=== PATIENT | female | born 1995 | race African-American/Black ===

== ENCOUNTER 2017-01-08 15:26 | Emergency (ER) | payer SELFPAY ==
[~2017-01-08] VITALS: Ht 160 cm; Wt 80.0 kg
[2017-01-08 15:27] VITALS: BP 124/78; PULSE 81; RESP 16; TEMP 98.4; O2SAT 98
[2017-01-08] MEDS ORDERED: ZOFR4TAB3 SL (15:57)
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
== END 2017-01-08 16:08 | disposition home or self-care (01) ==
LOC: NEPD 15:26
DX: K52.9 Noninfective gastroenteritis and colitis, unspecified (principal)
CPT/HCPCS: 99283

== ENCOUNTER 2017-03-13 12:55 | Emergency (ER) | payer MEDICAID ==
[~2017-03-13] VITALS: Ht 160 cm; Wt 75.0 kg
[~2017-03-13 12:55] MED LIST: ZOFR4TAB3 SL
[2017-03-13 12:58] VITALS: BP 116/74; PULSE 76; RESP 20; TEMP 97.9; O2SAT 100
[2017-03-13] MEDS ORDERED: SODIUM CHLOR 0.9% 1000 ML INJ 1,000 ML IV SCH (14:52)
[2017-03-13] MEDS ORDERED: ONDANSETRON HCL 4 MG/2 ML VIAL IVP ONE (15:00)
[2017-03-13] MEDS ORDERED: SODIUM CHLOR 0.9% 1000 ML INJ 1,000 ML IV ONE (15:00)
[2017-03-13] MEDS ORDERED: FAMOTIDINE 20 MG/2 ML VIAL IV PUSH ONE (15:00)
[2017-03-13] MEDS ORDERED: SODIUM CHLORIDE 0.9% FLUSH 10 ML FLUSH IV FLUSH PRN (15:00)
[2017-03-13] MEDS ORDERED: ZOFR4TAB PO (15:07)
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
[2017-03-13 15:43] LABS: AUTOMATED NEUTROPHIL # 2.2 TH/MM3 (1.8-7.7); BASOPHIL % 0.7 % (0.0-2.0); EOSINOPHIL # 0.1 TH/MM3 (0-0.4); EOSINOPHIL % 2.5 % (0.0-4.0); HEMATOCRIT 40.1 % (35.0-46.0); HEMO FLAGS DIFF FINAL; LYMPH % 43.4 % (9.0-44.0); LYMPHOCYTE # 2.1 TH/MM3 (1.0-4.8); MEAN CELL VOLUME 93.8 FL (80.0-100.0); MEAN CORPUSCULAR HEMOGLOBIN 31.8 PG (27.0-34.0); MEAN CORPUSCULAR HGB CONC 33.9 % (32.0-36.0); MONO % 8.1 % (0.0-8.0); NEUT % 45.3 % (16.0-70.0); PLATELET COUNT 277 TH/MM3 (150-450); RED BLOOD COUNT 4.28 MIL/MM3 (4.00-5.30); RED CELL DISTRIBUTION WIDTH 14.4 % (11.6-17.2); WHITE BLOOD COUNT 4.9 TH/MM3 (4.0-11.0)
[2017-03-13 16:12] LABS: ALT (GPT) 32 U/L (9-42); ANION GAP 9 MEQ/L (5-15); AST (GOT) 49 U/L (16-38); BICARBONATE 26.7 MEQ/L (21.0-32.0); BLOOD UREA NITROGEN 10 MG/DL (7-18); CHLORIDE 106 MEQ/L (98-107); GLOMERULAR FILTRATION RATE 137 ML/MIN (>89); POTASSIUM 3.9 MEQ/L (3.5-5.1); SODIUM (NA) 142 MEQ/L (136-145)
[2017-03-13 16:15] LABS: ALKALINE PHOSPHATASE 88 U/L (45-117); TOTAL BILIRUBIN ADULT 0.4 MG/DL (0.2-1.0)
== END 2017-03-13 16:44 | disposition home or self-care (01) ==
LOC: NEPD 12:55
DX: R11.2 Nausea with vomiting, unspecified (principal); J45.909 Unspecified asthma, uncomplicated
CPT/HCPCS: 80053; 84703; 85025; 96374; 96375; 99284; J2405; J7030

== ENCOUNTER 2017-03-16 15:47 | Emergency (ER) | payer MEDICAID ==
[~2017-03-16] VITALS: Ht 160 cm; Wt 75.0 kg
[~2017-03-16 15:47] MED LIST changes: +ZOFR4TAB PO
[2017-03-16 15:49] VITALS: BP 149/84; PULSE 74; RESP 16; TEMP 98.6; O2SAT 100
--- NOTE | 2017-03-16 18:21 | EKG ---
Date Performed: 03/16/2017 Time Performed: 16:07:13 PTAGE: 21 years EKG: Baseline artifact present probable Normal Sinus rhythm NO PREVIOUS TRACING Would repeat EKG DOCTOR: Joseph Walton Interpretating Date/Time 03/16/2017 18:20:46
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
[2017-03-16] MEDS ORDERED: VIST50CA PO (19:55)
[2017-03-16 20:12] VITALS: BP 134/70; PULSE 78; RESP 18; O2SAT 98
== END 2017-03-16 20:13 | disposition home or self-care (01) ==
LOC: NEPD 15:47
DX: F41.9 Anxiety disorder, unspecified (principal); R07.89 Other chest pain
CPT/HCPCS: 93005; 99283

== ENCOUNTER 2017-03-29 15:05 | Emergency (ER) | payer MEDICAID ==
[~2017-03-29] VITALS: Ht 160 cm; Wt 74.0 kg
[~2017-03-29 15:05] MED LIST changes: +VIST50CA PO
[2017-03-29 15:07] VITALS: BP 133/74; PULSE 79; RESP 16; TEMP 98.8; O2SAT 96
--- NOTE | 2017-03-29 15:42 | PD ---
HPI Chief Complaint: Cold / Flu Symptoms Time Seen by Provider: 15:42 PFSH Past Medical History Asthma: Yes Diminished Hearing: No Respiratory: Yes (ASTHMA) Social History Alcohol Use: Yes Tobacco Use: No Substance Use: No Allergies-Medications (Allergen,Severity, Reaction): Coded Allergies: No Known Allergies (Verified , 03/29/17) Reported Meds & Prescriptions Reported Meds & Active Scripts Active Ibuprofen 600 Mg Tab 600 Mg PO Q6H PRN Data Data Last Documented VS Vital Signs Date Time Temp Pulse Resp B/P (MAP) Pulse Ox O2 Delivery O2 Flow Rate FiO2 03/29/17 19:16 03/29/17 18:51 61 20 98 Room Air 03/29/17 15:07 98.8 Orders Orders Electrocardiogram (03/29/17 15:56) Basic Metabolic Panel (Bmp) (03/29/17 15:56) Complete Blood Count With Diff (03/29/17 15:56) D-Dimer (03/29/17 15:56) Troponin I (03/29/17 15:56) Chest, Single Ap (03/29/17 15:56) Ecg Monitoring (03/29/17 15:56) Bilateral Bp Monitoring (03/29/17 15:56) Iv Access Insert/Monitor (03/29/17 15:56) Oximetry (03/29/17 15:56) Oxygen Administration (03/29/17 15:56) Sodium Chloride 0.9% Flush (Ns Flush) (03/29/17 16:00) Ketorolac Inj (Toradol Inj) (03/29/17 16:00) Vascular Access Team Consult/P PRN (03/29/17 16:31) Vascular Poc Ultrasound (03/29/17 ) Ed Discharge Order (03/29/17 18:49) Labs Laboratory Tests Test 03/29/17 18:05 White Blood Count 6.3 TH/MM3 Red Blood Count 4.35 MIL/MM3 Hemoglobin 14.0 GM/DL Hematocrit 41.2 % Mean Corpuscular Volume 94.8 FL Mean Corpuscular Hemoglobin 32.3 PG Mean Corpuscular Hemoglobin Concent 34.1 % Red Cell Distribution Width 14.4 % Platelet Count 257 TH/MM3 Mean Platelet Volume 7.9 FL Neutrophils (%) (Auto) 43.3 % Lymphocytes (%) (Auto) 43.9 % Monocytes (%) (Auto) 7.8 % Eosinophils (%) (Auto) 4.5 % Basophils (%) (Auto) 0.5 % Neutrophils # (Auto) 2.8 TH/MM3 Lymphocytes # (Auto) 2.8 TH/MM3 Monocytes # (Auto) 0.5 TH/MM3 Eosinophils # (Auto) 0.3 TH/MM3 Basophils # (Auto) 0.0 TH/MM3 CBC Comment DIFF FINAL Differential Comment D-Dimer Quantitative (PE/DVT) 0.21 MG/L FEU Blood Urea Nitrogen 11 MG/DL Creatinine 0.69 MG/DL Random Glucose 81 MG/DL Calcium Level 9.2 MG/DL Sodium Level 139 MEQ/L Potassium Level 3.9 MEQ/L Chloride Level 107 MEQ/L Carbon Dioxide Level 25.6 MEQ/L Anion Gap 6 MEQ/L Estimat Glomerular Filtration Rate 133 ML/MIN Troponin I LESS THAN 0.02 NG/ML MDM Scripts Ibuprofen (Ibuprofen) 600 Mg Tab 600 MG PO Q6H Y for Pain/Inflammation, #40 TAB 0 Refills Prov: Anthony Serrano MD 03/29/17 Mathieu Kim Mar 29, 2017 15:42
--- NOTE | 2017-03-29 15:53 | PD ---
HPI Chief Complaint: Cold / Flu Symptoms Time Seen by Provider: 15:52 Travel History International Travel<30 days: No Contact w/Intl Traveler<30days: No Traveled to known affect area: No History of Present Illness HPI 21-year-old female came to the emergency room with history of pleuritic chest pain for past 1 month. Upon asking patient points to her mid thoracic area as her main location of pain. No radiation of the pain. Patient says she has some associated hot and cold feeling lately. Her pain last night was severe as per her sister who is here with her. Patient says she has some associated lightheadedness when the pain comes. The pain comes and goes as per her. Vital signs in triage were stable. Patient is otherwise healthy. [facility] Past Medical History Narrative Medical List of her past medical, surgical, social and family history is reviewed from the nursing note. Asthma: Yes Diminished Hearing: No Respiratory: Yes (ASTHMA) ?: Not LMP: 03/02/17 Social History Alcohol Use: Yes Tobacco Use: No Substance Use: No Allergies-Medications (Allergen,Severity, Reaction): Coded Allergies: No Known Allergies (Verified , 03/29/17) Comments No known drug allergies. Reported Meds & Prescriptions Reported Meds & Active Scripts Active Ibuprofen 600 Mg Tab 600 Mg PO Q6H PRN Narrative Medication List of her home medications reviewed from the nursing note. Review of Systems Except as stated in HPI: all other systems reviewed are Neg Cardiovascular: Positive: Chest Pain or Discomfort Physical Exam Narrative GENERAL: Awake, alert, no obvious distress SKIN: Focused skin assessment warm/dry. HEAD: Atraumatic. Normocephalic. EYES: Pupils equal and round. No scleral icterus. No injection or drainage. ENT: No nasal bleeding or discharge. Mucous membranes pink and moist. NECK: Trachea midline. No JVD. CARDIOVASCULAR: Regular rate and rhythm. No murmur appreciated. RESPIRATORY: No accessory muscle use. Clear to auscultation. Breath sounds equal bilaterally. GASTROINTESTINAL: Abdomen soft, non-tender, nondistended. Hepatic and splenic margins not palpable. MUSCULOSKELETAL: No obvious deformities. No clubbing. No cyanosis. No edema. NEUROLOGICAL: Awake and alert. No obvious cranial nerve deficits. Motor grossly within normal limits. Normal speech. PSYCHIATRIC: Appropriate mood and affect; insight and judgment normal. Data Data Last Documented VS Orders Orders Electrocardiogram (03/29/17 15:56) Basic Metabolic Panel (Bmp) (03/29/17 15:56) Complete Blood Count With Diff (03/29/17 15:56) D-Dimer (03/29/17 15:56) Troponin I (03/29/17 15:56) Chest, Single Ap (03/29/17 15:56) Ecg Monitoring (03/29/17 15:56) Bilateral Bp Monitoring (03/29/17 15:56) Iv Access Insert/Monitor (03/29/17 15:56) Oximetry (03/29/17 15:56) Oxygen Administration (03/29/17 15:56) Sodium Chloride 0.9% Flush (Ns Flush) (03/29/17 16:00) Ketorolac Inj (Toradol Inj) (03/29/17 16:00) Vascular Access Team Consult/P PRN (03/29/17 16:31) Vascular Poc Ultrasound (03/29/17 ) Ed Discharge Order (03/29/17 18:49) Labs Laboratory Tests Test 03/29/17 18:05 White Blood Count 6.3 TH/MM3 Red Blood Count 4.35 MIL/MM3 Hemoglobin 14.0 GM/DL Hematocrit 41.2 % Mean Corpuscular Volume 94.8 FL Mean Corpuscular Hemoglobin 32.3 PG Mean Corpuscular Hemoglobin Concent 34.1 % Red Cell Distribution Width 14.4 % Platelet Count 257 TH/MM3 Mean Platelet Volume 7.9 FL Neutrophils (%) (Auto) 43.3 % Lymphocytes (%) (Auto) 43.9 % Monocytes (%) (Auto) 7.8 % Eosinophils (%) (Auto) 4.5 % Basophils (%) (Auto) 0.5 % Neutrophils # (Auto) 2.8 TH/MM3 Lymphocytes # (Auto) 2.8 TH/MM3 Monocytes # (Auto) 0.5 TH/MM3 Eosinophils # (Auto) 0.3 TH/MM3 Basophils # (Auto) 0.0 TH/MM3 CBC Comment DIFF FINAL Differential Comment D-Dimer Quantitative (PE/DVT) 0.21 MG/L FEU Blood Urea Nitrogen 11 MG/DL Creatinine 0.69 MG/DL Random Glucose 81 MG/DL Calcium Level 9.2 MG/DL Sodium Level 139 MEQ/L Potassium Level 3.9 MEQ/L Chloride Level 107 MEQ/L Carbon Dioxide Level 25.6 MEQ/L Anion Gap 6 MEQ/L Estimat Glomerular Filtration Rate 133 ML/MIN Troponin I LESS THAN 0.02 NG/ML MDM Medical Decision Making Medical Screen Exam Complete: Yes Emergency Medical Condition: Yes Medical Record Reviewed: Yes Interpretation(s) Twelve-lead EKG was reviewed by me. Normal sinus rhythm, normal axis, sinus arrhythmia, nonspecific ST-T wave changes. Heart rate of 68 bpm. Differential Diagnosis PE, nonspecific chest pain, muscular skeletal chest pain Narrative Course 4:17 PM awaiting for the blood test result. Patient is getting Toradol for pain. 6:43 PM all her labs were redraw. The CBC has returned which is within normal limit. Awaiting for the chemistry and the d-dimer. Chest x-rays negative. Procedures EKG Prior to Arrival: No Diagnosis Primary Impression: Atypical chest pain Referrals: Primary Care Physician Additional Instructions: Please return to the ER if the condition worsens or any other new concerns. The medication as per the prescription direction. Do not take the medication empty stomach. Drink lots of fluid to keep flushing the medication out of the kidney. Return to the ER if the condition worsens or any other new concerns. Follow-up with your primary care. Med/Other Pt SpecificInfo: Prescription(s) given Scripts Ibuprofen (Ibuprofen) 600 Mg Tab 600 MG PO Q6H Y for Pain/Inflammation, #40 TAB 0 Refills Prov: Anthony Serrano MD 03/29/17 Disposition: 01 DISCHARGE HOME Condition: Stable Anthony Serrano MD Mar 29, 2017 15:53
[2017-03-29] MEDS ORDERED: SODIUM CHLORIDE 0.9% FLUSH 10 ML FLUSH IVF PRN (16:00)
[2017-03-29] MEDS ORDERED: KETOROLAC TROMETHAMINE 30 MG/ML (IVP) VIAL IV PUSH ONE (16:00)
--- NOTE | 2017-03-29 16:26 | RADRPT ---
EXAM DATE/TIME: 03/29/2017 16:10 [place] COMPARISON: No previous studies available for comparison. INDICATIONS : Pain in middle of chest today MEDICAL HISTORY : None. SURGICAL HISTORY : None. ENCOUNTER: Initial ACUITY: 1 day PAIN SCORE: 10/10 LOCATION: Bilateral chest FINDINGS: A single view of the chest demonstrates the lungs to be symmetrically aerated without evidence of mas s, infiltrate or effusion. The cardiomediastinal contours are unremarkable. Osseous structures are intact. CONCLUSION: Normal examination. Jong Craft Jr., MD on March 29, 2017 at 16:24 Board Certified Radiologist. This report was verified electronically.
[2017-03-29 18:30] LABS: AUTOMATED NEUTROPHIL # 2.8 TH/MM3 (1.8-7.7); BASOPHIL % 0.5 % (0.0-2.0); EOSINOPHIL # 0.3 TH/MM3 (0-0.4); EOSINOPHIL % 4.5 % (0.0-4.0); HEMATOCRIT 41.2 % (35.0-46.0); HEMO FLAGS DIFF FINAL; LYMPH % 43.9 % (9.0-44.0); LYMPHOCYTE # 2.8 TH/MM3 (1.0-4.8); MEAN CELL VOLUME 94.8 FL (80.0-100.0); MEAN CORPUSCULAR HEMOGLOBIN 32.3 PG (27.0-34.0); MEAN CORPUSCULAR HGB CONC 34.1 % (32.0-36.0); MONO % 7.8 % (0.0-8.0); NEUT % 43.3 % (16.0-70.0); PLATELET COUNT 257 TH/MM3 (150-450); RED BLOOD COUNT 4.35 MIL/MM3 (4.00-5.30); RED CELL DISTRIBUTION WIDTH 14.4 % (11.6-17.2); WHITE BLOOD COUNT 6.3 TH/MM3 (4.0-11.0)
[2017-03-29 18:39] LABS: ANION GAP 6 MEQ/L (5-15); BICARBONATE 25.6 MEQ/L (21.0-32.0); BLOOD UREA NITROGEN 11 MG/DL (7-18); CHLORIDE 107 MEQ/L (98-107); GLOMERULAR FILTRATION RATE 133 ML/MIN (>89); POTASSIUM 3.9 MEQ/L (3.5-5.1); SODIUM (NA) 139 MEQ/L (136-145)
[2017-03-29 18:51] VITALS: BP 114/84; PULSE 61; RESP 20; O2SAT 98
[2017-03-29] MEDS ORDERED: IBUP-232 PO (18:51)
--- NOTE | 2017-03-30 09:54 | EKG ---
Date Performed: 03/29/2017 Time Performed: 16:04:28 PTAGE: 21 years EKG: Sinus rhythm WITH MARKED SINUS ARRHYTHMIA BORDERLINE ECG PREVIOUS TRACING : 03/16/2017 16.07 DOCTOR: Fermin Tomlin Interpretating Date/Time 03/30/2017 09:51:50
== END 2017-03-29 19:17 | disposition home or self-care (01) ==
LOC: NEPC 15:05
DX: R07.89 Other chest pain (principal); J45.909 Unspecified asthma, uncomplicated; I49.8 Other specified cardiac arrhythmias
CPT/HCPCS: 71010; 80048; 84484; 85025; 85379; 93005; 96374; 99285; J1885

== ENCOUNTER 2017-04-22 13:17 | Emergency (ER) | payer MEDICAID ==
[~2017-04-22 13:17] MED LIST changes: +IBUP-232 PO; -VIST50CA PO; -ZOFR4TAB PO; -ZOFR4TAB3 SL
[2017-04-22 13:21] VITALS: BP 117/74; PULSE 72; RESP 14; TEMP 98.1; O2SAT 98
--- NOTE | 2017-04-22 14:44 | PD ---
HPI Chief Complaint: Respiratory Symptoms Time Seen by Provider: 14:11 Travel History International Travel<30 days: No Contact w/Intl Traveler<30days: No Traveled to known affect area: No History of Present Illness HPI The patient is a 21-year-old after [place] female who presents to the emergency department for 2 days of anterior chest pain. The chest pain is located anteriorly, along the sternal border, radiates to the back, is worse with coughing and inspiration. The patient does note a productive cough producing white sputum. The patient had similar symptoms 1 month ago and was seen in emergency department she had a workup and was discharged on ibuprofen. The patient states her pain did improve, however, has returned. The patient does have a history of asthma and uses her albuterol inhaler when necessary. The patient denies any sore throat, congestion, nausea, vomiting, diarrhea, or abdominal pain. Patient denies any recent hospitalizations, surgeries, or prolonged travel. The patient denies any history of pulmonary embolism or DVT. PFSH Past Medical History Asthma: Yes Diabetes: No Diminished Hearing: No Respiratory: Yes (ASTHMA) Social History Alcohol Use: Yes Tobacco Use: No Substance Use: Yes (MARIJUANA) Allergies-Medications (Allergen,Severity, Reaction): Coded Allergies: No Known Allergies (Verified , 04/22/17) Reported Meds & Prescriptions Reported Meds & Active Scripts Active No Active Prescriptions or Reported Medications Review of Systems Except as stated in HPI: all other systems reviewed are Neg General / Constitutional: No: Fever, Chills HENT: Positive: Congestion, No: Sore Throat Cardiovascular: Positive: Chest Pain or Discomfort Respiratory: Positive: Cough, Pleuritic Pain, No: Shortness of Breath Gastrointestinal: No: Nausea, Vomiting, Diarrhea, Abdominal Pain Musculoskeletal: No: Edema Physical Exam Narrative GENERAL: Awake, alert, nontoxic-appearing 21-year-old female who appears her stated age is in no acute respiratory distress. SKIN: Focused skin assessment warm/dry. HEAD: Atraumatic. Normocephalic. EYES: Pupils equal and round. No scleral icterus. No injection or drainage. ENT: No nasal bleeding or discharge. Mucous membranes pink and moist. Oropharynx reveals mild erythema but no exudate. NECK: Trachea midline. No JVD. CARDIOVASCULAR: Regular rate and rhythm. No murmur appreciated. Heart rate in the 70s. Palpation of the chest wall does not reproduce symptoms. RESPIRATORY: No accessory muscle use. Clear to auscultation. Breath sounds equal bilaterally. GASTROINTESTINAL: Abdomen soft, non-tender, nondistended. No rebound tenderness. MUSCULOSKELETAL: No obvious deformities. No clubbing. No cyanosis. No edema. NEUROLOGICAL: Awake and alert. No obvious cranial nerve deficits. Motor grossly within normal limits. Normal speech. PSYCHIATRIC: Appropriate mood and affect; insight and judgment normal. Data Data Last Documented VS Vital Signs Date Time Temp Pulse Resp B/P (MAP) Pulse Ox O2 Delivery O2 Flow Rate FiO2 04/22/17 15:51 16 04/22/17 14:15 98 Room Air 04/22/17 13:21 98.1 72 117/74 (88) Orders Orders Electrocardiogram (04/22/17 14:39) Ckmb (Isoenzyme) Profile (04/22/17 14:39) Complete Blood Count With Diff (04/22/17 14:39) Comprehensive Metabolic Panel (04/22/17 14:39) Troponin I (04/22/17 14:39) Chest, Single Ap (04/22/17 14:39) Ecg Monitoring (04/22/17 14:39) Iv Access Insert/Monitor (04/22/17 14:39) Sodium Chloride 0.9% Flush (Ns Flush) (04/22/17 14:45) Sodium Chlorid 0.9% 500 Ml Inj (Ns 500 M (04/22/17 14:45) Ketorolac Inj (Toradol Inj) (04/22/17 14:45) Labs Laboratory Tests Test 04/22/17 14:53 White Blood Count 6.3 TH/MM3 Red Blood Count 4.30 MIL/MM3 Hemoglobin 13.6 GM/DL Hematocrit 41.3 % Mean Corpuscular Volume 95.9 FL Mean Corpuscular Hemoglobin 31.5 PG Mean Corpuscular Hemoglobin Concent 32.8 % Red Cell Distribution Width 14.5 % Platelet Count 271 TH/MM3 Mean Platelet Volume 7.5 FL Neutrophils (%) (Auto) 54.0 % Lymphocytes (%) (Auto) 35.5 % Monocytes (%) (Auto) 7.1 % Eosinophils (%) (Auto) 2.8 % Basophils (%) (Auto) 0.6 % Neutrophils # (Auto) 3.4 TH/MM3 Lymphocytes # (Auto) 2.3 TH/MM3 Monocytes # (Auto) 0.5 TH/MM3 Eosinophils # (Auto) 0.2 TH/MM3 Basophils # (Auto) 0.0 TH/MM3 CBC Comment DIFF FINAL Differential Comment Blood Urea Nitrogen 10 MG/DL Creatinine 0.69 MG/DL Random Glucose 79 MG/DL Total Protein 6.9 GM/DL Albumin 3.8 GM/DL Calcium Level 8.9 MG/DL Alkaline Phosphatase 83 U/L Aspartate Amino Transf (AST/SGOT) 17 U/L Alanine Aminotransferase (ALT/SGPT) 24 U/L Total Bilirubin 0.3 MG/DL Sodium Level 141 MEQ/L Potassium Level 3.9 MEQ/L Chloride Level 108 MEQ/L Carbon Dioxide Level 27.3 MEQ/L Anion Gap 6 MEQ/L Estimat Glomerular Filtration Rate 133 ML/MIN Total Creatine Kinase 92 U/L Troponin I LESS THAN 0.02 NG/ML MDM Medical Decision Making Medical Screen Exam Complete: Yes Emergency Medical Condition: Yes Medical Record Reviewed: Yes Interpretation(s) EKG reveals sinus bradycardia with sinus arrhythmia. Last Impressions Chest X-Ray 04/22/17 8624 Signed Impressions: Service Date/Time: Saturday, April 22, 2017 14:43 - CONCLUSION: Normal examination for a patient of this age. No significant change has occurred. Mega Chavis MD Laboratory Tests Test 04/22/17 14:53 White Blood Count 6.3 TH/MM3 Red Blood Count 4.30 MIL/MM3 Hemoglobin 13.6 GM/DL Hematocrit 41.3 % Mean Corpuscular Volume 95.9 FL Mean Corpuscular Hemoglobin 31.5 PG Mean Corpuscular Hemoglobin Concent 32.8 % Red Cell Distribution Width 14.5 % Platelet Count 271 TH/MM3 Mean Platelet Volume 7.5 FL Neutrophils (%) (Auto) 54.0 % Lymphocytes (%) (Auto) 35.5 % Monocytes (%) (Auto) 7.1 % Eosinophils (%) (Auto) 2.8 % Basophils (%) (Auto) 0.6 % Neutrophils # (Auto) 3.4 TH/MM3 Lymphocytes # (Auto) 2.3 TH/MM3 Monocytes # (Auto) 0.5 TH/MM3 Eosinophils # (Auto) 0.2 TH/MM3 Basophils # (Auto) 0.0 TH/MM3 CBC Comment DIFF FINAL Differential Comment Blood Urea Nitrogen 10 MG/DL Creatinine 0.69 MG/DL Random Glucose 79 MG/DL Total Protein 6.9 GM/DL Albumin 3.8 GM/DL Calcium Level 8.9 MG/DL Alkaline Phosphatase 83 U/L Aspartate Amino Transf (AST/SGOT) 17 U/L Alanine Aminotransferase (ALT/SGPT) 24 U/L Total Bilirubin 0.3 MG/DL Sodium Level 141 MEQ/L Potassium Level 3.9 MEQ/L Chloride Level 108 MEQ/L Carbon Dioxide Level 27.3 MEQ/L Anion Gap 6 MEQ/L Estimat Glomerular Filtration Rate 133 ML/MIN Total Creatine Kinase 92 U/L Troponin I LESS THAN 0.02 NG/ML Differential Diagnosis Differential diagnosis includes pleurisy, costochondritis, pericarditis, myocarditis, pulmonary embolism, pneumonia, bronchitis, reactive airway disease. Narrative Course IV was established, labs are drawn and sent, and the patient was placed on cardiac telemetry monitoring and continuous pulse oximetry monitoring. EKG was ordered and interpreted. Chest x-ray was obtained. The patient was administered Toradol 30 mg intravenously. The patient had a negative d-dimer in March of 0.21. She has no risk factors, heart rate is normal, therefore, is ruled out using Wells criteria. The patient's chest x-rays unremarkable. Troponin is less than 0.02 and CPK is unremarkable. The patient is medically clear to be evaluated on an outpatient basis. Diagnosis Primary Impression: Atypical chest pain Patient Instructions: General Instructions Additional Instructions: Medications as directed. Follow-up with your primary physician. Please provide the patient a copy of her x-ray results and lab results at discharge. Return if symptoms worsen or progress. Med/Other Pt SpecificInfo: Prescription(s) given Scripts Ibuprofen (Ibuprofen) 600 Mg Tab 600 MG PO Q6H Y for Pain/Inflammation, #20 TAB 0 Refills Prov: Sohan Cuadra MD 04/22/17 Disposition: 01 DISCHARGE HOME Condition: Stable Sohan Cuadra MD Apr 22, 2017 14:44
[2017-04-22] MEDS ORDERED: KETOROLAC TROMETHAMINE 30 MG/ML (IVP) VIAL IV PUSH ONE (14:45)
[2017-04-22] MEDS ORDERED: SODIUM CHLORIDE 0.9% FLUSH 10 ML FLUSH IVF PRN (14:45)
[2017-04-22] MEDS ORDERED: SODIUM CHLORID 0.9% 500 ML INJ 500 ML IV ONE (14:45)
--- NOTE | 2017-04-22 15:28 | RADRPT ---
EXAM DATE/TIME: 04/22/2017 14:43 [facility] COMPARISON: CHEST SINGLE AP, March 29, 2017, 16:10. INDICATIONS : Chest pain. MEDICAL HISTORY : Smoker. SURGICAL HISTORY : None. ENCOUNTER: Initial ACUITY: 2 days PAIN SCORE: 5/10 LOCATION: chest midline. FINDINGS: A single view of the chest demonstrates the lungs to be symmetrically aerated without evidence of mas s, infiltrate or effusion. The cardiomediastinal contours are unremarkable. Osseous structures are intact. CONCLUSION: Normal examination for a patient of this age. No significant change has occurred. Mega Chavis MD on April 22, 2017 at 15:26 Board Certified Radiologist. This report was verified electronically.
[2017-04-22 15:29] LABS: AUTOMATED NEUTROPHIL # 3.4 TH/MM3 (1.8-7.7); BASOPHIL % 0.6 % (0.0-2.0); EOSINOPHIL # 0.2 TH/MM3 (0-0.4); EOSINOPHIL % 2.8 % (0.0-4.0); HEMATOCRIT 41.3 % (35.0-46.0); HEMOGLOBIN 13.6 GM/DL (11.6-15.3); LYMPH % 35.5 % (9.0-44.0); LYMPHOCYTE # 2.3 TH/MM3 (1.0-4.8); MEAN CELL VOLUME 95.9 FL (80.0-100.0); MEAN CORPUSCULAR HEMOGLOBIN 31.5 PG (27.0-34.0); MEAN CORPUSCULAR HGB CONC 32.8 % (32.0-36.0); MEAN PLATELET VOLUME 7.5 FL (7.0-11.0); MONO % 7.1 % (0.0-8.0); MONOCYTE # 0.5 TH/MM3 (0-0.9); PLATELET COUNT 271 TH/MM3 (150-450); RED CELL DISTRIBUTION WIDTH 14.5 % (11.6-17.2); WHITE BLOOD COUNT 6.3 TH/MM3 (4.0-11.0)
[2017-04-22 15:51] VITALS: RESP 16
[2017-04-22 15:51] LABS: ALBUMIN 3.8 GM/DL (3.4-5.0); ALT (GPT) 24 U/L (9-42); AST (GOT) 17 U/L (16-38); BICARBONATE 27.3 MEQ/L (21.0-32.0); BLOOD UREA NITROGEN 10 MG/DL (7-18); CALCIUM 8.9 MG/DL (8.5-10.1); CHLORIDE 108 MEQ/L (98-107); CREATININE 0.69 MG/DL (0.50-1.00); GLOMERULAR FILTRATION RATE 133 ML/MIN (>89); GLUCOSE,RANDOM 79 MG/DL (74-106); SODIUM (NA) 141 MEQ/L (136-145)
[2017-04-22 15:55] LABS: ALKALINE PHOSPHATASE 83 U/L (45-117); TOTAL BILIRUBIN ADULT 0.3 MG/DL (0.2-1.0); TOTAL PROTEIN 6.9 GM/DL (6.4-8.2); TROPONIN I LESS THAN 0.02 NG/ML (0.02-0.05)
[2017-04-22] MEDS ORDERED: IBUP-232 PO (16:43)
[2017-04-22 17:00] VITALS: BP 108/76; TEMP 97.8
--- NOTE | 2017-04-22 21:34 | EKG ---
Date Performed: 04/22/2017 Time Performed: 15:01:06 PTAGE: 21 years EKG: SINUS BRADYCARDIA WITH PACs ABNORMAL ECG PREVIOUS TRACING : 03/29/2017 16.04 No significant change from previous tracing noted. DOCTOR: Jose Maria Thakkar Interpretating Date/Time 04/22/2017 21:32:59
== END 2017-04-22 17:00 | disposition home or self-care (01) ==
LOC: NEPD 13:17
DX: R07.89 Other chest pain (principal); R05 Cough; R00.1 Bradycardia, unspecified; I49.8 Other specified cardiac arrhythmias; J45.909 Unspecified asthma, uncomplicated; R94.31 Abnormal electrocardiogram [ECG] [EKG]
CPT/HCPCS: 71010; 80053; 82550; 84484; 85025; 93005; 96361; 96374; 99285; J1885; J7040

== ENCOUNTER 2017-05-30 16:31 | Emergency (ER) | payer MEDICAID ==
[2017-05-30 16:33] VITALS: BP 124/76; PULSE 116; RESP 14; TEMP 98.8; O2SAT 100
--- NOTE | 2017-05-30 18:20 | PD ---
HPI Chief Complaint: Cold / Flu Symptoms Time Seen by Provider: 18:12 Travel History International Travel<30 days: No Contact w/Intl Traveler<30days: No Traveled to known affect area: No History of Present Illness HPI Patient comes in complaining of Flulike symptoms ongoing for almost a week. Patient complaining of cough that is occasionally productive, sinus congestion, chills, and eye redness. Patient's been using [id number] mucus relief does help some. Denies anything making it worse. Denies any known sick contacts, , chest pain, shortness of breath, abdominal pain, nausea, vomiting, loss or change in bowel or bladder, sore throat, or neck pain. Patient denies anything making his symptoms worse. Patient reports a history of asthma she has not used her inhaler since last week secondary to being almost out of it. PFSH Past Medical History Asthma: Yes Diabetes: No Diminished Hearing: No Respiratory: Yes (ASTHMA) ?: Not LMP: 04/30/17 Social History Alcohol Use: Yes Tobacco Use: No Substance Use: Yes (MARIJUANA) Allergies-Medications (Allergen,Severity, Reaction): Coded Allergies: No Known Allergies (Verified , 05/30/17) Reported Meds & Prescriptions Reported Meds & Active Scripts Active Zithromax Z-Marco Antonio (Azithromycin) 250 Mg Dspk 250 Mg PO DIRECTED 500 MG (2 tabs) day 1, then 1 tab days 2-5. Medrol Dosepak (Methylprednisolone) 4 Mg Dspk 4 Mg PO DIRECTED Per Pharmacist direction Ventolin Hfa 18 GM Inh (Albuterol Sulfate) 90 Mcg/Act Aer 2 Puff INH Q4H PRN Ibuprofen 600 Mg Tab 600 Mg PO Q6H PRN Review of Systems Except as stated in HPI: all other systems reviewed are Neg Physical Exam Narrative GENERAL: Well-developed, overly nourished, in no acute distress, and non-ill appearing. SKIN: Focused skin assessment warm and dry. HEAD: Atraumatic. Normocephalic. EYES: Pupils equal and round. EOMI. No scleral icterus. No injection or drainage. ENT: No nasal bleeding or discharge. Mucous membranes pink and moist. Tympanic membranes pearly goodson bilaterally. Posterior pharynx nonerythematous without exudate. Uvulas midline. Patient reports tenderness to palpation left maxillary sinus. NECK: Trachea midline. No cervical lymphadenopathy. Supple. No nuclear rigidity. CARDIOVASCULAR: Regular rate and rhythm. No murmur appreciated. RESPIRATORY: No accessory muscle use. No respiratory distress. Scant wheezing noted right lower lobe. MUSCULOSKELETAL: No obvious deformities. No clubbing. No cyanosis. No edema. Full range of motion. NEUROLOGICAL: Awake and alert. No obvious cranial nerve deficits. Motor grossly within normal limits. Normal speech. PSYCHIATRIC: Appropriate mood and affect; insight and judgment normal. Data Data Last Documented VS Vital Signs Date Time Temp Pulse Resp B/P (MAP) Pulse Ox O2 Delivery O2 Flow Rate FiO2 05/30/17 19:37 05/30/17 16:33 98.8 116 14 100 Orders Orders Albuterol-Ipratropium Neb (Duoneb Neb) (05/30/17 18:30) Prednisone (Deltasone) (05/30/17 18:30) Influenzae A/B Antigen (05/30/17 18:16) Chest, Single Ap (05/30/17 ) Ed Discharge Order (05/30/17 19:21) [facility] Medical Decision Making Medical Screen Exam Complete: Yes Emergency Medical Condition: Yes Interpretation(s) Last Impressions Chest X-Ray 05/30/17 0000 Signed Impressions: Service Date/Time: Tuesday, May 30, 2017 18:29 - CONCLUSION: 1. No active disease. Yobany Chapman MD Differential Diagnosis Influenza, URI, asthma exacerbation, bronchitis, viral syndrome, pneumonia Narrative Course The patient looks great and improved well with Nebulizer and steroid medication. The patient is moving air well and in no distress nor significant dyspnea, and oxygen saturation is within normal limits. There is no clinical evidence to suggest pneumonia at this time, however the patient may have a mild bronchitis. Diagnosis, plan of care and management were discussed with the patient who agreed with plan and feels better and ready to go home. The patient was instructed to return if worsen, worsening difficulty breathing or wheezing, persistent fever, chest pain or as needed. Patient in no obvious distress upon re-evaluation. All pertinent laboratory/ Radiology result(s) discussed with patient. Patient was asked if they wanted to speak to my attending, which the patient did not wish to do at this time. Any questions/concerns in reference to patient diagnosis/condition discussed and clarified prior to patient's discharge. Reinforced sheer importance of close follow up with patient's primary physician or primary care clinic. Instructed patient to return to ED immediately, if symptoms return/worsen. Patient showed understanding of above instructions. Further instructions and recommendations were detailed in discharge paperwork. Patient ambulated without difficulty out of ED at discharge. Diagnosis Primary Impression: Asthma with bronchitis Referrals: [facility] Patient Instructions: Acute Bronchitis (ED), Asthma (ED), General Instructions Additional Instructions: Follow-up with your primary care physician this week for reevaluation. Take all medication as prescribed. Use [id number] Tylenol as needed for pain or fevers. Follow instructions on the packaging. Drink plenty of non- caffeinated and nonalcoholic fluids. Return to the emergency department if symptoms get worse. Med/Other Pt SpecificInfo: Prescription(s) given Scripts Azithromycin (Zithromax Z-Marco Antonio) 250 Mg Dspk 250 MG PO DIRECTED for Infection, #1 DSPK 0 Refills 500 MG (2 tabs) day 1, then 1 tab days 2-5. Prov: Brandi James DO 05/30/17 Methylprednisolone Dosepak (Medrol Dosepak) 4 Mg Dspk 4 MG PO DIRECTED, #1 DSPK 0 Refills Per Pharmacist direction Prov: Brandi James DO 05/30/17 Albuterol 18 GM Inh (Ventolin Hfa 18 GM Inh) 90 Mcg/Act Aer 2 PUFF INH Q4H Y for SOB/WHEEZING, #1 INHALER 0 Refills Prov: Brandi James DO 05/30/17 Disposition: 01 DISCHARGE HOME Condition: Stable Ruddy Cross May 30, 2017 18:20
[2017-05-30] MEDS ORDERED: RESP: ALBUTEROL 2.5 MG/IPRATROPIUM 0.5 MG NEB (SCH) INH ONE (18:30)
[2017-05-30] MEDS ORDERED: predniSONE 20 MG TAB PO ONE (18:30)
--- NOTE | 2017-05-30 18:36 | RADRPT ---
EXAM DATE/TIME: 05/30/2017 18:29 [facility] COMPARISON: CHEST SINGLE AP, April 22, 2017, 14:43. INDICATIONS : Cough, congestion and flu symptoms. MEDICAL HISTORY : Asthma SURGICAL HISTORY : None. ENCOUNTER: Initial ACUITY: 2 weeks PAIN SCORE: 5/10 LOCATION: Bilateral chest FINDINGS: A single view of the chest demonstrates the lungs to be symmetrically aerated without evidence of mas s, infiltrate or effusion. The cardiomediastinal contours are unremarkable. Osseous structures are intact. CONCLUSION: 1. No active disease. Yobany Chapman MD on May 30, 2017 at 18:34 Board Certified Radiologist. This report was verified electronically.
[2017-05-30] MEDS ORDERED: VENTAER INH (19:19)
[2017-05-30] MEDS ORDERED: MEDR4PAK PO (19:19)
[2017-05-30] MEDS ORDERED: ZITHTAB PO (19:19)
== END 2017-05-30 19:38 | disposition home or self-care (01) ==
LOC: NEPK 16:31
DX: J45.909 Unspecified asthma, uncomplicated (principal); F12.90 Cannabis use, unspecified, uncomplicated
CPT/HCPCS: 71045; 87804; 94664; 99284; J7512

== ENCOUNTER 2017-08-29 13:33 | Emergency (ER) | payer SELFPAY ==
[~2017-08-29 13:33] MED LIST changes: +MEDR4PAK PO; +VENTAER INH; +ZITHTAB PO
[2017-08-29 13:59] VITALS: BP 128/67; PULSE 84; RESP 18; TEMP 97.7; O2SAT 100
[2017-08-29 16:50] VITALS: BP 144/75; PULSE 80; O2SAT 99
[2017-08-29] MEDS ORDERED: SODIUM CHLOR 0.9% 1000 ML INJ 1,000 ML IV SCH (17:21)
--- NOTE | 2017-08-29 17:26 | PD ---
HPI Chief Complaint: Anxiety Time Seen by Provider: 16:53 Travel History International Travel<30 days: No Contact w/Intl Traveler<30days: No Traveled to known affect area: No History of Present Illness HPI 21-year-old female presents to the emergency department complaining of having an anxiety attack that started last night at approximately 10 PM. EMS was called to [facility] where the patient is a student and according to the patient she was told that her blood pressure was low. Her blood pressure is normal here in the ER. Last night she said she woke up at 10 PM shaking and having a an anxiety attack. She reports tension in her chest and back. Reports feeling like her muscles are cramping. Denies fever, vomiting. Denies chest pain. Reports feeling short of breath. Is concerned because she is still shaking and having anxiety attack. Denies suicidal or homicidal ideations. Has not taken any medication or tried any treatments to alleviate her symptoms. No known relieving or aggravating factors. Symptoms are mild in severity. Primary care provider is in [facility]. No known allergies. History of anxiety and asthma. Has no other medical complaints. No other modifying factors or associated signs and symptoms. PFSH Past Medical History Asthma: Yes Diabetes: No Diminished Hearing: No Respiratory: Yes (ASTHMA) ?: Not LMP: 07/2017 Past Surgical History Surgical History: No Previous Surgery Social History Alcohol Use: Yes (OCASSIONALLY) Tobacco Use: No Substance Use: Yes (MARIJUANA) Allergies-Medications (Allergen,Severity, Reaction): Coded Allergies: No Known Allergies (Verified , 05/30/17) Reported Meds & Prescriptions Reported Meds & Active Scripts Active Vistaril (Hydroxyzine Pamoate) 25 Mg Cap 25 Mg PO TID PRN Ventolin Hfa 18 GM Inh (Albuterol Sulfate) 90 Mcg/Act Aer 2 Puff INH Q4H PRN Review of Systems Except as stated in HPI: all other systems reviewed are Neg Physical Exam Narrative GENERAL: Well-nourished, well-developed black female patient, in no acute distress; sitting in bed smiling and talking to her friends in the room SKIN: Warm and dry. HEAD: Atraumatic. Normocephalic. EYES: Pupils equal and round. No scleral icterus. No injection or drainage. ENT: Mucosa pink and moist. Airway patent. NECK: Trachea midline. CARDIOVASCULAR: Regular rate and rhythm. No murmur appreciated. RESPIRATORY: No accessory muscle use. Breath sounds clear and equal bilaterally. No retractions or tachypnea. GASTROINTESTINAL: Abdomen soft, non-tender, nondistended. Positive bowel sounds. No hepato-splenomegaly, or palpable masses. No guarding. MUSCULOSKELETAL: No obvious deformities. No clubbing. No cyanosis. No edema. NEUROLOGICAL: At rest, no shakiness noted. When patient moves she has shakiness of BUE. Awake and alert. Oriented 3. No obvious cranial nerve deficits. Motor grossly within normal limits. Normal speech. PSYCHIATRIC: Appropriate mood and affect; insight and judgment normal. Data Data Last Documented VS Vital Signs Date Time Temp Pulse Resp B/P (MAP) Pulse Ox O2 Delivery O2 Flow Rate FiO2 08/29/17 18:46 08/29/17 16:50 80 99 Room Air 08/29/17 13:59 97.7 18 Orders Orders Basic Metabolic Panel (Bmp) (08/29/17 17:21) Complete Blood Count With Diff (08/29/17 17:21) Iv Access Insert/Monitor (08/29/17 17:21) Sodium Chlor 0.9% 1000 Ml Inj (Ns 1000 M (08/29/17 17:21) Sodium Chloride 0.9% Flush (Ns Flush) (08/29/17 17:30) Electrocardiogram (08/29/17 17:21) Chest, Single Ap (08/29/17 17:21) Hydroxyzine Pamoate (Vistaril) (08/29/17 17:30) Magnesium (Mg) (08/29/17 17:21) Ketorolac Inj (Toradol Inj) (08/29/17 17:30) Ed Discharge Order (08/29/17 18:24) Labs Laboratory Tests Test 08/29/17 17:44 White Blood Count 5.7 TH/MM3 Red Blood Count 4.24 MIL/MM3 Hemoglobin 13.4 GM/DL Hematocrit 40.5 % Mean Corpuscular Volume 95.5 FL Mean Corpuscular Hemoglobin 31.6 PG Mean Corpuscular Hemoglobin Concent 33.1 % Red Cell Distribution Width 13.3 % Platelet Count 279 TH/MM3 Mean Platelet Volume 7.5 FL Neutrophils (%) (Auto) 47.7 % Lymphocytes (%) (Auto) 42.8 % Monocytes (%) (Auto) 7.6 % Eosinophils (%) (Auto) 1.4 % Basophils (%) (Auto) 0.5 % Neutrophils # (Auto) 2.7 TH/MM3 Lymphocytes # (Auto) 2.4 TH/MM3 Monocytes # (Auto) 0.4 TH/MM3 Eosinophils # (Auto) 0.1 TH/MM3 Basophils # (Auto) 0.0 TH/MM3 CBC Comment DIFF FINAL Differential Comment Blood Urea Nitrogen 10 MG/DL Creatinine 0.71 MG/DL Random Glucose 78 MG/DL Calcium Level 9.5 MG/DL Magnesium Level 1.9 MG/DL Sodium Level 140 MEQ/L Potassium Level 3.8 MEQ/L Chloride Level 107 MEQ/L Carbon Dioxide Level 23.4 MEQ/L Anion Gap 10 MEQ/L Estimat Glomerular Filtration Rate 128 ML/MIN MDM Medical Decision Making Medical Screen Exam Complete: Yes Emergency Medical Condition: Yes Medical Record Reviewed: Yes Differential Diagnosis Anxiety, electrolyte imbalance, hypokalemia, hypomagnesia Narrative Course 21-year-old female, with history of anxiety, presents with anxiety attack, per the patient. She reports muscle cramping, chest tightness, shakiness, and shortness of breath. Reports the symptoms are similar with past anxiety attacks. She cannot verify how often she has anxiety attacks. She appears comfortable in the room and is talking and smiling with her friends that have accompanied her. I discussed the patient with my attending physician, Dr. Sarabia and he agrees with my plan of care. CBC, BMP, chest x-ray, EKG ordered. Vistaril and Toradol ordered. 1814: EKG with normal sinus rhythm. 1820: CBC, BMP, magnesium unremarkable. Chest x-ray with no acute findings. Discussed findings with the patient. Vistaril prescribed for home. Instructed patient to follow up with primary care provider. Patient verbalizes understanding and agreement with treatment plan. Patient is medically cleared and stable for discharge. Discussed reasons to return to the emergency department. Patient agrees with treatment plan. The patients vital signs are stable and the patient is stable for outpatient follow-up and treatment. Patient discharged home, stable and in no acute distress. Diagnosis Primary Impression: Anxiety Referrals: [facility] Primary Care Physician Patient Instructions: Anxiety (ED), General Instructions Additional Instructions: Vistaril as prescribed and as needed for anxiety Follow-up with primary care provider Med/Other Pt SpecificInfo: Prescription(s) given Scripts Hydroxyzine Pamoate (Vistaril) 25 Mg Cap 25 MG PO TID Y for ANXIETY, #10 CAP 0 Refills Prov: Danna Velazquez 08/29/17 Disposition: 01 DISCHARGE HOME Condition: Stable Danna Velazquez Aug 29, 2017 17:26
[2017-08-29] MEDS ORDERED: KETOROLAC TROMETHAMINE 30 MG/ML (IVP) VIAL IV PUSH ONE (17:30)
[2017-08-29] MEDS ORDERED: SODIUM CHLORIDE 0.9% FLUSH 10 ML FLUSH IV FLUSH PRN (17:30)
[2017-08-29] MEDS ORDERED: hydrOXYzine PAMOATE 25 MG CAP PO ONE (17:30)
--- NOTE | 2017-08-29 17:50 | RADRPT ---
EXAM DATE/TIME: 08/29/2017 17:25 [facility] COMPARISON: CHEST SINGLE AP, May 30, 2017, 18:29. INDICATIONS : Short of breath. MEDICAL HISTORY : Asthma. SURGICAL HISTORY : None. ENCOUNTER: Initial ACUITY: 1 day PAIN SCORE: 0/10 LOCATION: Bilateral chest FINDINGS: A single view of the chest demonstrates the lungs to be symmetrically aerated without evidence of mas s, infiltrate or effusion. The cardiomediastinal contours are unremarkable. Osseous structures are intact. CONCLUSION: No acute disease. Darnell Salazar MD on August 29, 2017 at 17:48 Board Certified Radiologist. This report was verified electronically.
[2017-08-29 17:54] LABS: AUTOMATED NEUTROPHIL # 2.7 TH/MM3 (1.8-7.7); BASOPHIL % 0.5 % (0.0-2.0); EOSINOPHIL # 0.1 TH/MM3 (0-0.4); EOSINOPHIL % 1.4 % (0.0-4.0); HEMATOCRIT 40.5 % (35.0-46.0); HEMOGLOBIN 13.4 GM/DL (11.6-15.3); LYMPH % 42.8 % (9.0-44.0); LYMPHOCYTE # 2.4 TH/MM3 (1.0-4.8); MEAN CELL VOLUME 95.5 FL (80.0-100.0); MEAN CORPUSCULAR HEMOGLOBIN 31.6 PG (27.0-34.0); MEAN CORPUSCULAR HGB CONC 33.1 % (32.0-36.0); MEAN PLATELET VOLUME 7.5 FL (7.0-11.0); MONO % 7.6 % (0.0-8.0); MONOCYTE # 0.4 TH/MM3 (0-0.9); NEUT % 47.7 % (16.0-70.0); PLATELET COUNT 279 TH/MM3 (150-450); RED BLOOD COUNT 4.24 MIL/MM3 (4.00-5.30); RED CELL DISTRIBUTION WIDTH 13.3 % (11.6-17.2); WHITE BLOOD COUNT 5.7 TH/MM3 (4.0-11.0)
[2017-08-29 18:20] LABS: BICARBONATE 23.4 MEQ/L (21.0-32.0); CALCIUM 9.5 MG/DL (8.5-10.1); CREATININE 0.71 MG/DL (0.50-1.00); MAGNESIUM 1.9 MG/DL (1.5-2.5)
[2017-08-29] MEDS ORDERED: VIST25CA PO (18:24)
--- NOTE | 2017-08-29 21:56 | EKG ---
Date Performed: 08/29/2017 Time Performed: 17:58:11 PTAGE: 21 years EKG: Sinus rhythm POSSIBLE RIGHT VENTRICULAR CONDUCTION DELAY MINIMAL VOLTAGE CRITERIA FOR LVH, CONSIDER NORMAL VARIAN T BORDERLINE ECG PREVIOUS TRACING : 04/22/2017 15.01 Compared to previous tracing, heart rate has increased, min imal voltage criteria for LVH is now present. DOCTOR: Jose Maria Thakkar Interpretating Date/Time 08/29/2017 21:54:35
== END 2017-08-29 19:01 | disposition home or self-care (01) ==
LOC: NEPD 13:33
DX: F41.9 Anxiety disorder, unspecified (principal); R94.31 Abnormal electrocardiogram [ECG] [EKG]; J45.909 Unspecified asthma, uncomplicated; Z79.899 Other long term (current) drug therapy
CPT/HCPCS: 71045; 80048; 83735; 85025; 93005; 96374; 99285; J1885; J7030; Q0177